=== PATIENT | male | born 1995 | race African-American/Black ===

== ENCOUNTER 2016-10-10 14:54 | Emergency (ER) | payer OTHER ==
--- NOTE | 2016-10-10 17:42 | EDDOCDS ---
Nurse's Notes [facility] Name: Garcia Martinez Age: 20 yrs Sex: Male : 1995 Arrival Date: 10/10/2016 Time: 14:54 Bed Triage 2 Private MD: Sheila AVILA Diagnosis: Encounter for screening for other diseases and disorders-REQUESTING STD TESTING Presentation: 10/10 15:00 Presenting complaint: Patient states: Possible STD exposure, recent unprotected sex dwg with a partner last weekend, denies any symptoms. Adult Sepsis Screening: The patient does not have new or worsening altered mentation. Patient's respiratory rate is less than 22. Systolic blood pressure is greater than 100. Patient has a qSOFA score of 0- Negative Sepsis Screen. Suicide/Homicide risk assessment- the patient denies having any suicidal and/or homicidal ideations and does not present with any other emotional, behavioral or mental health complaints. 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 Transition of care: patient was not received from another setting of care. 15:00 Acuity: TERESITA Level 5 dwg 15:00 Method Of Arrival: Walkin/Carried/Asstd dwg Triage Assessment: 15:02 General: Appears in no apparent distress. Pain: Denies pain. Pt requests HIV screening. dwg Order Generated. Historical: - Allergies: no known allergies; - Home Meds: 1. none - PMHx: Migraine Headaches; - PSHx: none; - Social history: Smoking status: Patient states was never smoker of tobacco. No barriers to communication noted, The patient speaks fluent Chinese. - Family history: Not pertinent. - : The pt / caregiver states he / she is not on anticoagulants. Home medication list is obtained from the patient. - Exposure Risk Screening:: None identified. Screenin:40 Screening information is obtained from the patient. Fall risk: No risks identified. srm Assistance ADL's: requires no assistance with activities of daily living. Abuse/DV Screen: The patient / caregiver reports he/she is: not in a situation that causes fear, pain or injury. Nutritional screening: No deficits noted. Advance Directives: There is no active DNR order. home support is adequate. Assessment: 17:40 Reassessment: Patient appears in no apparent distress at this time. srm Vital Signs: 14:56 BP 137 / 73; Pulse 91; Resp 18 S; Temp 97.6(O); Pulse Ox 98% on R/A; Weight 58.97 kg gr2 (R); Height 5 ft. 10 in. (177.80 cm) (R); Pain 0/10; 17:32 BP 128 / 78; Pulse 79; Resp 18; Temp 99.0(TE); Pulse Ox 99% on R/A; Pain 0/10; mdr 14:56 Body Mass Index 18.65 (58.97 kg, 177.80 cm) gr2 Vitals: 14:56 Log In Time: October 10, 2016 at 14:56. gr2 ED Course: 14:55 Patient visited by Gabriel Lopez. gr2 14:55 Patient moved to Waiting gr2 14:56 [facility]. gr2 14:58 Patient visited by Gabriel Lopez. gr2 14:58 Patient moved to Pre RCE gr2 15:02 Triage Initiated dwg 16:31 GC & Chlamydia Amplification Sent. srm 16:47 Patient moved to Triage 2 srm 17:14 Ml Mckeon PA-C is PHCP. dt4 17:14 Peyman Clarke MD is Attending Physician. dt4 17:14 Patient visited by Ml Mckeon PA-C. dt4 17:33 Patient visited by Edmar Shipman PCA. mdr 17:40 The patient / caregiver is instructed regarding the plan of care and ED course. Patient srm has correct armband on for positive identification. 17:40 No IV's were initiated during this patient's visit. No procedures done that require srm assistance. Order Results: There are currently no results for this order. Outcome: 17:23 Discharge ordered by Provider. dt4 17:40 Discharge Assessment: Patient awake, alert and oriented x 3. No cognitive and/or srm functional deficits noted. Patient verbalized understanding of disposition instructions. patient administered narcotics - no. The following High Risk Discharge criteria are identified: None. Discharged to home ambulatory. Condition: good Condition: stable. Discharge instructions given to patient, Instructed on discharge instructions, follow up and referral plans. Demonstrated understanding of instructions, Pt was receptive of discharge instructions/ teaching. No special radiology studies were completed. Property :Personal belongings accompany Pt. 17:41 Patient left the ED. srm Signatures: Jimbo Thompson RN RN dwg Tiffanie Taylor, DEYANIRA RN Gabriel Faustin gr2 Ml Mckeon PA-C PAYadira willis4 Edmar Shipman, DAVION SEWING MACHINE ASSEMBLER mdr MTDD
--- NOTE | 2016-10-10 17:42 | EDDOCDS ---
Physician Documentation [facility] Name: Garcia Martinez Age: 20 yrs Sex: Male : 1995 Arrival Date: 10/10/2016 Time: 14:54 Bed Triage 2 [facility] Dis[facility]: 10/10/16 17:23 Discharged to Home/Self Care. Impression: Encounter for screening for other diseases and disorders - REQUESTING STD TESTING. - Condition is Stable. - Discharge Instructions: Sexually Transmitted Disease. - Medication Reconciliation, Local Pharmacy Hours form. - Follow up: Emergency Department; When: As needed; Reason: Worsening of conditions. Follow up: Private Physician; When: 2 - 3 days; Reason: Wound/Symptom Recheck, Recheck today's complaints, Continuance of care. - Problem is new. - Symptoms are unchanged. - Notes: YOU HAVE BEEN TESTED FOR GONORRHEA AND CHLAMYDIA TODAY. THESE TESTS WILL NOT RESULT TODAY AND SHOULD RETURN FROM THE LAB TOMORROW OR THE FOLLOWING DAY. YOU WILL BE CALLED AND NOTIFIED IF THESE ARE POSITIVE, AND INSTRUCTED TO WHAT TO DO FROM THERE. ANY WORSENING SYMPTOMS, PLEASE RETURN TO THE ER. Historical: - Allergies: no known allergies; - Home Meds: 1. none - PMHx: Migraine Headaches; - PSHx: none; - Social history: Smoking status: Patient states was never smoker of tobacco. No barriers to communication noted, The patient speaks fluent Yemeni. - Family history: Not pertinent. - : The pt / caregiver states he / she is not on anticoagulants. Home medication list is obtained from the patient. - Exposure Risk Screening:: None identified. Vital Signs: 10/10 14:56 BP 137 / 73; Pulse 91; Resp 18 S; Temp 97.6(O); Pulse Ox 98% on R/A; Weight 58.97 kg / gr2 130.01 lbs (R); Height 5 ft. 10 in. (177.80 cm) (R); Pain 0/10; 17:32 BP 128 / 78; Pulse 79; Resp 18; Temp 99.0(TE); Pulse Ox 99% on R/A; Pain 0/10; mdr 14:56 Body Mass Index 18.65 (58.97 kg, 177.80 cm) gr2 MDM: 16:26 GC & Chlamydia Amplification Ordered. EDMS Signatures: Dispatcher [employer] Jimbo Jiménez, Tiffanie Garrido RN, DEYANIRA RN Ml King, RACHEL RAMOS dt4 The chart was reviewed and I authenticate all verbal orders and agree with the evaluation and treatment provided.Corrections: (The following items were deleted from the chart) 16:27 15:03 HIV Screen, Nursing ordered. osvaldo srm MTDD
--- NOTE | 2016-10-12 18:42 | EDDOCDS ---
Nurse's Notes [facility] Name: Garcia Martinez Age: 20 yrs Sex: Male : 1995 Arrival Date: 10/10/2016 Time: 14:54 Bed Triage 2 Private MD: Sheila AVILA Diagnosis: Encounter for screening for other diseases and disorders-REQUESTING STD TESTING Presentation: 10/10 15:00 Presenting complaint: Patient states: Possible STD exposure, recent unprotected sex dwg with a partner last weekend, denies any symptoms. Adult Sepsis Screening: The patient does not have new or worsening altered mentation. Patient's respiratory rate is less than 22. Systolic blood pressure is greater than 100. Patient has a qSOFA score of 0- Negative Sepsis Screen. Suicide/Homicide risk assessment- the patient denies having any suicidal and/or homicidal ideations and does not present with any other emotional, behavioral or mental health complaints. 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 Transition of care: patient was not received from another setting of care. 15:00 Acuity: TERESITA Level 5 dwg 15:00 Method Of Arrival: Walkin/Carried/Asstd dwg Triage Assessment: 15:02 General: Appears in no apparent distress. Pain: Denies pain. Pt requests HIV screening. dwg Order Generated. Historical: - Allergies: no known allergies; - Home Meds: 1. none - PMHx: Migraine Headaches; - PSHx: none; - Social history: Smoking status: Patient states was never smoker of tobacco. No barriers to communication noted, The patient speaks fluent Bengali. - Family history: Not pertinent. - : The pt / caregiver states he / she is not on anticoagulants. Home medication list is obtained from the patient. - Exposure Risk Screening:: None identified. Screenin:40 Screening information is obtained from the patient. Fall risk: No risks identified. srm Assistance ADL's: requires no assistance with activities of daily living. Abuse/DV Screen: The patient / caregiver reports he/she is: not in a situation that causes fear, pain or injury. Nutritional screening: No deficits noted. Advance Directives: There is no active DNR order. home support is adequate. Assessment: 17:40 Reassessment: Patient appears in no apparent distress at this time. srm Vital Signs: 14:56 BP 137 / 73; Pulse 91; Resp 18 S; Temp 97.6(O); Pulse Ox 98% on R/A; Weight 58.97 kg gr2 (R); Height 5 ft. 10 in. (177.80 cm) (R); Pain 0/10; 17:32 BP 128 / 78; Pulse 79; Resp 18; Temp 99.0(TE); Pulse Ox 99% on R/A; Pain 0/10; mdr 14:56 Body Mass Index 18.65 (58.97 kg, 177.80 cm) gr2 Vitals: 14:56 Log In Time: October 10, 2016 at 14:56. gr2 ED Course: 14:55 Patient visited by Gabriel Lopez. gr2 14:55 Patient moved to Waiting gr2 14:56 [facility]. gr2 14:58 Patient visited by Gabriel Lopez. gr2 14:58 Patient moved to Pre RCE gr2 15:02 Triage Initiated dwg 16:31 GC & Chlamydia Amplification Sent. srm 16:47 Patient moved to Triage 2 srm 17:14 Ml Mckeon PA-C is PHCP. dt4 17:14 Peyman Clarke MD is Attending Physician. dt4 17:14 Patient visited by Ml Mckeon PA-C. dt4 17:33 Patient visited by Edmar Shipman PCA. mdr 17:40 The patient / caregiver is instructed regarding the plan of care and ED course. Patient srm has correct armband on for positive identification. 17:40 No IV's were initiated during this patient's visit. No procedures done that require srm assistance. 20:04 [facility] Payment Agreement was scanned into [employer] and attached to record. gjb 10/11 11:58 T-Sheet-- Draft Copy was scanned into [employer] and attached to record. gb Order Results: Lab Order: GC & Chlamydia Amplification; SPEC'M 10/10/16 16:28 Test: CHLAMYDIA DNA AMPLIFICATION; Value: NEGATIVE; Range: NEGATIVE; Status: F Test: GC DNA AMPLIFICATION; Value: NEGATIVE; Range: NEGATIVE; Status: F Outcome: 10/10 17:23 Discharge ordered by Provider. dt4 17:40 Discharge Assessment: Patient awake, alert and oriented x 3. No cognitive and/or srm functional deficits noted. Patient verbalized understanding of disposition instructions. patient administered narcotics - no. The following High Risk Discharge criteria are identified: None. Discharged to home ambulatory. Condition: good Condition: stable. Discharge instructions given to patient, Instructed on discharge instructions, follow up and referral plans. Demonstrated understanding of instructions, Pt was receptive of discharge instructions/ teaching. No special radiology studies were completed. Property :Personal belongings accompany Pt. 17:41 Patient left the ED. srm Signatures: Jimbo Thompson RN RN Tiffanie Mirza RN RN srm Kisha Tate, Reg Reg Gabriel Mesa gr2 Ml Mckeon PA-C PAYadira dt4 Edmar Shipman PCA PCA mdr Beck, Gabriela gjb Chart Complete MTDOlu
--- NOTE | 2016-10-12 18:42 | EDDOCDS ---
Physician Documentation [facility] Name: Garcia Martinez Age: 20 yrs Sex: Male : 1995 Arrival Date: 10/10/2016 Time: 14:54 Bed Triage 2 [facility] Dis[facility]: 10/10/16 17:23 Discharged to Home/Self Care. Impression: Encounter for screening for other diseases and disorders - REQUESTING STD TESTING. - Condition is Stable. - Discharge Instructions: Sexually Transmitted Disease. - Medication Reconciliation, Local Pharmacy Hours form. - Follow up: Emergency Department; When: As needed; Reason: Worsening of conditions. Follow up: Private Physician; When: 2 - 3 days; Reason: Wound/Symptom Recheck, Recheck today's complaints, Continuance of care. - Problem is new. - Symptoms are unchanged. - Notes: YOU HAVE BEEN TESTED FOR GONORRHEA AND CHLAMYDIA TODAY. THESE TESTS WILL NOT RESULT TODAY AND SHOULD RETURN FROM THE LAB TOMORROW OR THE FOLLOWING DAY. YOU WILL BE CALLED AND NOTIFIED IF THESE ARE POSITIVE, AND INSTRUCTED TO WHAT TO DO FROM THERE. ANY WORSENING SYMPTOMS, PLEASE RETURN TO THE ER. Historical: - Allergies: no known allergies; - Home Meds: 1. none - PMHx: Migraine Headaches; - PSHx: none; - Social history: Smoking status: Patient states was never smoker of tobacco. No barriers to communication noted, The patient speaks fluent Saudi Arabian. - Family history: Not pertinent. - : The pt / caregiver states he / she is not on anticoagulants. Home medication list is obtained from the patient. - Exposure Risk Screening:: None identified. Vital Signs: 10/10 14:56 BP 137 / 73; Pulse 91; Resp 18 S; Temp 97.6(O); Pulse Ox 98% on R/A; Weight 58.97 kg / gr2 130.01 lbs (R); Height 5 ft. 10 in. (177.80 cm) (R); Pain 0/10; 17:32 BP 128 / 78; Pulse 79; Resp 18; Temp 99.0(TE); Pulse Ox 99% on R/A; Pain 0/10; mdr 14:56 Body Mass Index 18.65 (58.97 kg, 177.80 cm) gr2 MDM: 16:26 GC & Chlamydia Amplification Ordered. EDMS 20:04 [facility] Payment Agreement was scanned into [employer] and attached to record. [facility] : Financial registration complete. [facility] 10/11 11:58 T-Sheet-- Draft Copy was scanned into [employer] and attached to record. akanksha Signatures: Dispatcher [employer] Jimbo Jiménez RN RN dwg Michelson, Staci, RN RN [facility] Lea, Kisha, Reg Reg gb Ml Mckeon PA-C PA-C dt4 Beck, Gabriela gjb The chart was reviewed and I authenticate all verbal orders and agree with the evaluation and treatment provided.Corrections: (The following items were deleted from the chart) 10/10 16:27 15:03 HIV Screen, Nursing ordered. osvaldo [facility] Attachments: 20:04 [facility] Payment Agreement [facility] 10/11 11:58 T-Sheet-- Draft Copy gb Chart Complete MTDD
--- NOTE | 2016-10-12 18:42 | EDDOCDS ---
Physician Documentation [facility] Name: Garcia Martinez Age: 20 yrs Sex: Male : 1995 Arrival Date: 10/10/2016 Time: 14:54 Bed Triage 2 [facility]: 10/10/16 17:23 Discharged to Home/Self Care. Impression: Encounter for screening for other diseases and disorders - REQUESTING STD TESTING. - Condition is Stable. - Discharge Instructions: Sexually Transmitted Disease. - Medication Reconciliation, Local Pharmacy Hours form. - Follow up: Emergency Department; When: As needed; Reason: Worsening of conditions. Follow up: Private Physician; When: 2 - 3 days; Reason: Wound/Symptom Recheck, Recheck today's complaints, Continuance of care. - Problem is new. - Symptoms are unchanged. - Notes: YOU HAVE BEEN TESTED FOR GONORRHEA AND CHLAMYDIA TODAY. THESE TESTS WILL NOT RESULT TODAY AND SHOULD RETURN FROM THE LAB TOMORROW OR THE FOLLOWING DAY. YOU WILL BE CALLED AND NOTIFIED IF THESE ARE POSITIVE, AND INSTRUCTED TO WHAT TO DO FROM THERE. ANY WORSENING SYMPTOMS, PLEASE RETURN TO THE ER. Historical: - Allergies: no known allergies; - Home Meds: 1. none - PMHx: Migraine Headaches; - PSHx: none; - Social history: Smoking status: Patient states was never smoker of tobacco. No barriers to communication noted, The patient speaks fluent Jordanian. - Family history: Not pertinent. - : The pt / caregiver states he / she is not on anticoagulants. Home medication list is obtained from the patient. - Exposure Risk Screening:: None identified. Vital Signs: 10/10 14:56 BP 137 / 73; Pulse 91; Resp 18 S; Temp 97.6(O); Pulse Ox 98% on R/A; Weight 58.97 kg / gr2 130.01 lbs (R); Height 5 ft. 10 in. (177.80 cm) (R); Pain 0/10; 17:32 BP 128 / 78; Pulse 79; Resp 18; Temp 99.0(TE); Pulse Ox 99% on R/A; Pain 0/10; mdr 14:56 Body Mass Index 18.65 (58.97 kg, 177.80 cm) gr2 MDM: 16:26 GC & Chlamydia Amplification Ordered. EDMS 20:04 [facility] Payment Agreement was scanned into [employer] and attached to record. [facility] : Financial registration complete. [facility] 10/11 11:58 T-Sheet-- Draft Copy was scanned into [email or web address] and attached to record. akanksha Signatures: Dispatcher [employer] Jimbo Jiménez RN RN dwg Michelson, Staci, RN RN [facility] Lea, Kisha, Reg Reg gb Ml Mckeon PA-C PA-C dt4 Beck, Gabriela gjb The chart was reviewed and I authenticate all verbal orders and agree with the evaluation and treatment provided.Corrections: (The following items were deleted from the chart) 10/10 16:27 15:03 HIV Screen, Nursing ordered. osvaldo [facility] Attachments: 20:04 [facility] Payment Agreement [facility] 10/11 11:58 T-Sheet-- Draft Copy gb Chart Complete MTDD
== END 2016-10-10 17:41 | disposition home or self-care (01) ==
LOC: M ED 14:54
DX: Z11.3 Encounter for screening for infections with a predominantly sexual mode of transmission (principal)

== ENCOUNTER 2016-11-19 12:06 | Emergency (ER) | payer OTHER ==
[2016-11-19] MEDS ORDERED: traMADol 50 MG TAB As Ordered ONE (12:21)
--- NOTE | 2016-11-19 12:49 | REP ---
Clinical: Trauma. Technique: AP, lateral, bilateral oblique views right wrist . Findings: The carpal bones, surrounding osseous structures, soft tissues, and joint spaces are normal. There is no evidence for acute fracture or dislocation. No subcutaneous emphysema or radiodense foreign body. Impression: Normal wrist series. No acute fracture or dislocation Signed by Tod Tong MD 11/19/2016 12:41 P
--- NOTE | 2016-11-19 12:59 | EDDOCDS ---
Physician Documentation [facility] Name: Garcia Martinez Age: 20 yrs Sex: Male : 1995 Arrival Date: 11/19/2016 Time: 12:06 Bed TR8 Private MD: SOPHIA Crawford Disposition: 11/19/16 12:50 Discharged to Home/Self Care. Impression: Unspecified sprain of right wrist. - Condition is Stable. - Discharge Instructions: Wrist Pain. - Medication Reconciliation form. - Follow up: SOPHIA Crawford; When: Call to arrange an appointment; Reason: Wound/Symptom Recheck, Recheck today's complaints, Worsening of conditions, Continuance of care. - Problem is new. - Symptoms are unchanged. Historical: - Allergies: no known allergies; - Home Meds: 1. naproxen 250 mg Oral tab PRN (Last dose: 11/17/2016) 2. Trazodone Oral PRN (Last dose: 11/17/2016) - PMHx: insomnia; Migraine Headaches; - PSHx: none; - Social history: Smoking status: Patient states was never smoker of tobacco. Patient uses alcohol occasionally. Patient/guardian denies using street drugs, No barriers to communication noted, The patient speaks fluent Greek, Speaks appropriately for age. - Family history: Not pertinent. - : The pt / caregiver states he / she is not on anticoagulants. Home medication list is obtained from the patient. - Exposure Risk Screening:: None identified. Vital Signs: 11/19 12:07 BP 142 / 81; Pulse 80; Resp 16; Temp 97.4(O); Pulse Ox 100% on R/A; Weight 61.23 kg / lr2 134.99 lbs (R); Height 68 in. (172.72 cm) (R); Pain 7/10; 12:57 BP 120 / 72; Pulse 77; Resp 16; Temp 99.2(TE); Pulse Ox 100% on R/A; Pain 4/10; mlb1 12:07 Body Mass Index 20.53 (61.23 kg, 172.72 cm) lr2 MDM: 12:16 traMADol 50 mg PO once ordered. cc10 12:17 Wrist, Complete Ordered. EDMS 12:25 Financial registration complete. mm15 12:49 Alexy Wrap ordered. cc10 Administered Medications: 12:26 Drug: traMADol 50 mg [tramadol 50 mg tablet (1 tabs)] Route: PO; mlb1 Signatures: Dispatcher [employer] Pepito Martinez RN RN mlb1 Hue Green RN RN ttb Carina Shine mm15 Contreras Urena, PAJunaidC PAJunaidC cc10 MTDD
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
--- NOTE | 2016-11-21 13:59 | EDDOCDS ---
Physician Documentation [facility] Name: Garcia Martinez Age: 20 yrs Sex: Male : 1995 Arrival Date: 11/19/2016 Time: 12:06 Bed TR8 Private MD: SOPHIA Crawford Disposition: 11/19/16 12:50 Discharged to Home/Self Care. Impression: Unspecified sprain of right wrist. - Condition is Stable. - Discharge Instructions: Wrist Pain. - Medication Reconciliation form. - Follow up: SOPHIA Crawford; When: Call to arrange an appointment; Reason: Wound/Symptom Recheck, Recheck today's complaints, Worsening of conditions, Continuance of care. - Problem is new. - Symptoms are unchanged. Historical: - Allergies: no known allergies; - Home Meds: 1. naproxen 250 mg Oral tab PRN (Last dose: 11/17/2016) 2. Trazodone Oral PRN (Last dose: 11/17/2016) - PMHx: insomnia; Migraine Headaches; - PSHx: none; - Social history: Smoking status: Patient states was never smoker of tobacco. Patient uses alcohol occasionally. Patient/guardian denies using street drugs, No barriers to communication noted, The patient speaks fluent Malay, Speaks appropriately for age. - Family history: Not pertinent. - : The pt / caregiver states he / she is not on anticoagulants. Home medication list is obtained from the patient. - Exposure Risk Screening:: None identified. Vital Signs: 11/19 12:07 BP 142 / 81; Pulse 80; Resp 16; Temp 97.4(O); Pulse Ox 100% on R/A; Weight 61.23 kg / lr2 134.99 lbs (R); Height 68 in. (172.72 cm) (R); Pain 7/10; 12:57 BP 120 / 72; Pulse 77; Resp 16; Temp 99.2(TE); Pulse Ox 100% on R/A; Pain 4/10; mlb1 12:07 Body Mass Index 20.53 (61.23 kg, 172.72 cm) lr2 MDM: 12:16 traMADol 50 mg PO once ordered. cc10 12:17 Wrist, Complete Ordered. EDMS 12:25 Financial registration complete. mm15 12:49 Alexy Wrap ordered. cc10 13:16 [facility] Payment Agreement was scanned into [employer] and attached to record. mm15 11/20 10:28 T-Sheet-- Draft Copy was scanned into [employer] and attached to record. gb Administered Medications: 11/19 12:26 Drug: traMADol 50 mg [tramadol 50 mg tablet (1 tabs)] Route: PO; mlb1 Signatures: Dispatcher [employer] EDMS Kisha Tate, Reg Reg gb Pepito Moreno RN RN mlb1 Hue Green RN RN ttb Carina Shine mm15 Contreras Urena, PAJunaidC PA-C cc10 The chart was reviewed and I authenticate all verbal orders and agree with the evaluation and treatment provided.Attachments: 13:16 [facility] Payment Agreement mm15 11/20 10:28 T-Sheet-- Draft Copy gb Chart Complete MTDD
--- NOTE | 2016-11-21 13:59 | EDDOCDS ---
Physician Documentation [facility] Name: Garcia Martinez Age: 20 yrs Sex: Male : 1995 Arrival Date: 11/19/2016 Time: 12:06 Bed TR8 Private MD: SOPHIA Crawford Disposition: 11/19/16 12:50 Discharged to Home/Self Care. Impression: Unspecified sprain of right wrist. - Condition is Stable. - Discharge Instructions: Wrist Pain. - Medication Reconciliation form. - Follow up: SOPHIA Crawford; When: Call to arrange an appointment; Reason: Wound/Symptom Recheck, Recheck today's complaints, Worsening of conditions, Continuance of care. - Problem is new. - Symptoms are unchanged. Historical: - Allergies: no known allergies; - Home Meds: 1. naproxen 250 mg Oral tab PRN (Last dose: 11/17/2016) 2. Trazodone Oral PRN (Last dose: 11/17/2016) - PMHx: insomnia; Migraine Headaches; - PSHx: none; - Social history: Smoking status: Patient states was never smoker of tobacco. Patient uses alcohol occasionally. Patient/guardian denies using street drugs, No barriers to communication noted, The patient speaks fluent Maori, Speaks appropriately for age. - Family history: Not pertinent. - : The pt / caregiver states he / she is not on anticoagulants. Home medication list is obtained from the patient. - Exposure Risk Screening:: None identified. Vital Signs: 11/19 12:07 BP 142 / 81; Pulse 80; Resp 16; Temp 97.4(O); Pulse Ox 100% on R/A; Weight 61.23 kg / lr2 134.99 lbs (R); Height 68 in. (172.72 cm) (R); Pain 7/10; 12:57 BP 120 / 72; Pulse 77; Resp 16; Temp 99.2(TE); Pulse Ox 100% on R/A; Pain 4/10; mlb1 12:07 Body Mass Index 20.53 (61.23 kg, 172.72 cm) lr2 MDM: 12:16 traMADol 50 mg PO once ordered. cc10 12:17 Wrist, Complete Ordered. EDMS 12:25 Financial registration complete. mm15 12:49 Alexy Wrap ordered. cc10 13:16 [facility] Payment Agreement was scanned into [employer] and attached to record. mm15 11/20 10:28 T-Sheet-- Draft Copy was scanned into [employer] and attached to record. gb Administered Medications: 11/19 12:26 Drug: traMADol 50 mg [tramadol 50 mg tablet (1 tabs)] Route: PO; mlb1 Signatures: Dispatcher [employer] EDMS Kisha Tate, Reg Reg gb Pepito Moreno RN RN mlb1 Hue Green RN RN ttb Carina Shine mm15 Contreras Urena, PAJunaidC PA-C cc10 The chart was reviewed and I authenticate all verbal orders and agree with the evaluation and treatment provided.Attachments: 13:16 [facility] Payment Agreement mm15 11/20 10:28 T-Sheet-- Draft Copy gb Chart Complete MTDD
== END 2016-11-19 12:58 | disposition home or self-care (01) ==
LOC: M ED 12:06
DX: S63.511A Sprain of carpal joint of right wrist, initial encounter (principal); X58.XXXA Exposure to other specified factors, initial encounter; Y92.410 Unspecified street and highway as the place of occurrence of the external cause; Y93.89 Activity, other specified; Y99.8 Other external cause status; G47.00 Insomnia, unspecified; G43.909 Migraine, unspecified, not intractable, without status migrainosus

== ENCOUNTER 2017-11-29 15:10 | Emergency (ER) | payer OTHER | END 2017-11-29 16:20 | disposition home or self-care (01) | LOC: M ED 15:10 | DX: S86.811A Strain of other muscle(s) and tendon(s) at lower leg level, right leg, initial encounter (principal); W19.XXXA Unspecified fall, initial encounter; Y92.9 Unspecified place or not applicable; Y93.9 Activity, unspecified | CPT/HCPCS: 73564 ==

== ENCOUNTER 2017-12-09 18:08 | Emergency (ER) | payer OTHER ==
[2017-12-09 18:39] LABS: KETONE, URINE AUTO RFX NEGATIVE (NEGATIVE); MUCUS, URINE RFX SMALL (NEGATIVE); NITRITE, URINE AUTO RFX NEGATIVE (NEGATIVE); RBC, URINE AUTO RFX 3 /HPF (0-3); SPECIFIC GRAVITY UR AUTO RFX 1.008 (1.002-1.035); SQUAM EPITHELIAL CELL UR AURFX 0 /HPF (0-6)
[2017-12-09 18:40] LABS: LEUKOCYTE ESTERASE UR AUTO RFX 1+ (NEGATIVE); WBC, URINE AUTO RFX 11 /HPF (0-3)
[2017-12-09 20:20] LABS: CHLAMYDIA DNA AMPLIFICATION POSITIVE (NEGATIVE); GC DNA AMPLIFICATION NEGATIVE (NEGATIVE)
== END 2017-12-09 20:02 | disposition home or self-care (01) ==
LOC: M ED 18:08
DX: N39.0 Urinary tract infection, site not specified (principal)
CPT/HCPCS: 81001

== ENCOUNTER 2018-11-10 10:38 | Emergency (ER) | payer OTHER ==
[~2018-11-10] VITALS: Ht 172.7 cm; Wt 66.8 kg
[2018-11-10 10:38] VITALS: BP 128/85
[~2018-11-10 10:38] MED LIST: BACT800T5 PO
[2018-11-10] MEDS ORDERED: KEFL500C17 PO (11:32)
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
== END 2018-11-10 11:57 | disposition home or self-care (01) ==
LOC: M ED 10:38
DX: L03.031 Cellulitis of right toe (principal); L03.115 Cellulitis of right lower limb